=== PATIENT | male | born 1965 | race Caucasian/White ===

== ENCOUNTER 2021-10-14 22:26 | Emergency (ER) | payer MEDICAID ==
[~2021-10-14] VITALS: Ht 185.4 cm; Wt 86.4 kg
[2021-10-15 04:29] VITALS: BP 142/79
== END 2021-10-15 05:18 | disposition home or self-care (01) ==
LOC: ER 22:27
DX: Z02.89 Encounter for other administrative examinations (principal); F11.90 Opioid use, unspecified, uncomplicated; Z59.00 Homelessness unspecified; Z72.89 Other problems related to lifestyle
CPT/HCPCS: 99282